=== PATIENT | female | born 1945 | race Hispanic/Latino ===

== ENCOUNTER → 2017-12-14 | Outpatient (CLI) | payer MEDICARE | END | disposition home or self-care (01) | LOC: OIH 10:28 | PROVIDERS: ATTEND Family Medicine | DX: M17.12 Unilateral primary osteoarthritis, left knee (principal) | CPT/HCPCS: 73560 ==

== ENCOUNTER → 2019-04-14 | Outpatient (CLI) | payer MEDICARE ==
[~2019-04-14] MED LIST: REGADENOSON 0.4 MG/5 ML PF SYG IVP SCH
== END | disposition home or self-care (01) ==
LOC: RAH 08:56
PROVIDERS: ATTEND Internal Medicine Cardiovascular Disease
DX: R06.02 Shortness of breath (principal)
CPT/HCPCS: 78452; 93017; 96374; A9500 ×2; J2785